=== PATIENT | male | born 1955 | race Caucasian/White ===

== ENCOUNTER 2018-05-05 11:23 | Emergency (ER) | payer OTHER, BC ==
[~2018-05-05] VITALS: Ht 177.8 cm; Wt 95.5 kg
[~2018-05-05 11:23] MED LIST: ALEVE 220MG220 MG PO; ASPIRIN 81M81 MG/TA2 PO; ATIVAN0.5 MG PO; CARDI-OMEGA1000 MG PO; CLARITIN 1010 MG/TAB PO; D3; DESYREL 100MG100 MG PO; DOXYCYCLINE 10100 MG PO; KLONOPIN 0.5MG0.5 MG PO; MOBIC15 MG PO; MULTIPLE VITAMI1 CAP PO; NEURONTIN100 MG/CAP PO; OMEPRAZOLE40 MG PO; PRIL40 PO; SIMVASTATIN10 MG PO; TYLENOL 325MG325 MG PO; ULTRAM 50MG TAB50 MG PO; VITAMIN C500 MG PO; ZOCOR 40MG40 MG PO; ZOLOFT 100MG100 MG PO
[2018-05-05 12:01] LABS: BASO % 0.4 % (0.0-2.0); EOS # 0.1 (0.0-0.7); EOS % 1.1 % (0-4.0); GRAN # 6.4 (1.4-6.5); HEMATOCRIT 41.8 % (42.0-52.0); LYMPH # 0.9 (1.2-3.4); LYMPH % 11.4 % (20.0-51.0); MEAN CELL VOLUME 90 fl (80.0-100.0); MEAN CORPUSCULAR HEMOGLOBIN 30 pg (27.0-31.0); MEAN CORPUSCULAR HGB CONC 34 g/dl (33.0-37.0); MEAN PLATELET VOLUME 9.9 fl (7.4-10.4); MONO # 0.6 (0.1-0.6); MONO % 7.9 % (1.7-9.3); PLATELET COUNT 154 K/mm3 (130-400); RED BLOOD COUNT 4.66 M/mm3 (4.20-5.60); REDCELL DISTRIBUTION WIDTH-CV 12.4 % (11.5-14.5)
[2018-05-05] MEDS ORDERED: INDERAL 20MG20 MG PO (12:07)
[2018-05-05 12:09] LABS: BILIRUBIN,TOTAL 0.7 mg/dL (0.0-1.0); CALCIUM 8.8 mg/dL (8.4-10.2); CREATININE, serum 1.18 mg/dL (0.66-1.25); POTASSIUM 4.2 mmol/L (3.4-5.0); TOTAL PROTEIN 6.9 gm/dL (6.4-8.2)
[2018-05-05 12:30] VITALS: TEMP 98
[2018-05-05 12:51] VITALS: BP 141/79; PULSE 71
== END 2018-05-05 12:51 | disposition short-term general hospital (02) ==
LOC: COL.ER 11:23
PROVIDERS: Emergency Medicine
DX: S82.252A Displaced comminuted fracture of shaft of left tibia, initial encounter for closed fracture (principal); S82.452A Displaced comminuted fracture of shaft of left fibula, initial encounter for closed fracture; S82.251A Displaced comminuted fracture of shaft of right tibia, initial encounter for closed fracture; S82.241A Displaced spiral fracture of shaft of right tibia, initial encounter for closed fracture; Z23 Encounter for immunization; W20.8XXA Other cause of strike by thrown, projected or falling object, initial encounter; Y99.0 Civilian activity done for income or pay
CPT/HCPCS: J0690; J1170; J3010; Q4041; Q4050

== ENCOUNTER 2020-03-09 13:34 | Emergency (ER) | payer OTHER, BC ==
[~2020-03-09] VITALS: Ht 180.3 cm; Wt 100.0 kg
[~2020-03-09 13:34] MED LIST changes: +INDERAL 20MG20 MG PO
[2020-03-09 13:40] VITALS: BP 159/87; PULSE 84; TEMP 98.4
== END 2020-03-09 14:19 | disposition home or self-care (01) ==
LOC: COL.ER 13:34
DX: L55.9 Sunburn, unspecified (principal)